=== PATIENT | female | born 1995 | race African-American/Black ===

== ENCOUNTER 2016-12-29 16:07 | Emergency (ER) | payer OTHER ==
[2016-12-29 16:12] VITALS: BP 129/68; PULSE 76; TEMP 98.2; BMI 21.0
--- NOTE | 2016-12-29 16:31 | PDOC ---
History of Present Illness - General Chief Complaint: Ear Problem Stated Complaint: LEFT EAR PAIN Time Seen by Provider: 12/29/16 16:20 History Source: Patient Exam Limitations: No Limitations - History of Present Illness Initial Comments: 12/29/16 17:34 Chief complaint: Left ear bleeding History of present illness: Patient is a 21-year-old female with no significant medical history here today complaining of slight bleeding from her left ear last night and then again today. Patient denies any pain in left ear. Patient denies any hearing loss. Patient reports that she heard a ringing sound earlier today and then felt as if her ear was clogged slightly so she took a Q-tip and tried to clean her ear out and then shortly afterwards small more blood from her left ear. 12/29/16 17:45 Timing/Duration: changing over time Severity: mild Associated Symptoms: reports: denies symptoms Past History - Past Medical History Allergies/Adverse Reactions: Allergies Allergy/AdvReac Type Severity Reaction Status Date / Time No Known Allergies Allergy Verified 12/29/16 16:09 Home Medications: Ambulatory Orders Ofloxacin 10 ml DAILY #1 bottle 12/29/16 Other medical history: denies - Immunization History Immunization Up to Date: Yes - Psycho/Social/Smoking Cessation Hx Suicidal Ideation: No Smoking History: Never smoked Hx Alcohol Use: No Drug/Substance Use Hx: No Review of Systems - Review of Systems Able to Perform ROS?: Yes Constitutional: No: Symptoms Reported HEENTM: Yes: Other (bleeding from left ear last night and again today) Respiratory: No: Symptoms reported Cardiac (ROS): No: Symptoms Reported ABD/GI: No: Symptoms Reported : No: Symptoms Reported Musculoskeletal: No: Symptoms Reported Integumentary: No: Symptoms Reported Neurological: No: Symptoms reported *Physical Exam - Vital Signs Last Vital Signs Temp Pulse Resp BP Pulse Ox 98.2 F 76 18 129/68 100 12/29/16 16:09 12/29/16 16:09 12/29/16 16:12/29/16 16:09 12/29/16 16:09 - Physical Exam General Appearance: Yes: Appropriately Dressed HEENT: positive: TMs Normal (right ), Hearing Grossly Normal (b/l ears ), Other (dried blood noted left inner ear on cerumen, unable to fully visualize TM, no injury to left external ear canal). negative: Pharyngeal Erythema, Tonsillar Exudate, Tonsillar Erythema, Nasal Congestion, Rhinorrhea, Sinus Tenderness, Hearing Decreased Neck: negative: Lymphadenopathy (R), Lymphadenopathy (L) Respiratory/Chest: positive: Lungs Clear, Normal Breath Sounds. negative: Chest Tender, Respiratory Distress Cardiovascular: positive: Regular Rhythm, Regular Rate, S1, S2 Integumentary: positive: Normal Color Neurologic: positive: Alert, Normal Response, Responsive Medical Decision Making - Medical Decision Making 12/29/16 17:51 Patient is a 21-year-old female with no significant medical history here today complaining of slight bleeding from her left ear last night and then again today. Patient denies any pain in left ear. Patient denies any hearing loss. Patient reports that she heard a ringing sound earlier today and then felt as if her ear was clogged slightly so she took a Q-tip and tried to clean her ear out and then shortly afterwards small more blood from her left ear. left ear bleeding TM perforation PLAN Ofloxacin 0.3% otic solution 10 drops left ear follow up with ENT Do not get ear wet 12/29/16 17:45 *DC/Admit/Observation/Transfer Diagnosis at time of Disposition: Bleeding from left ear - Discharge Dispostion Disposition: HOME Condition at time of disposition: Stable - Prescriptions Prescriptions: Ofloxacin 10 ml DAILY #1 bottle - Referrals Referrals: STAFF,NOT ON [Primary Care Provider] - Odilon Kiser MD [Staff Physician] - - Patient Instructions Additional Instructions: Use Q-tips do not use Q-tips follow-up with ear nose and throat on 01/01/2017 Return to emergency room if symptoms worsen Take ibuprofen as needed as directed by [employer] party manager for pain Do not get any water in your LEFT ear Patient voiced understanding of discharge instructions and all questions were answered - Post Discharge Activity Work/School Note: Back to Work
== END 2016-12-29 17:31 | disposition home or self-care (01) ==
LOC: JERFT 16:07
DX: H92.22 Otorrhagia, left ear (principal)
CPT/HCPCS: 99281-25